=== PATIENT | male | born 1985 | race Two or more races ===

== ENCOUNTER 2018-12-13 09:26 | Outpatient (CLI) | payer OTHER ==
[~2018-12-13] VITALS: Ht 175.3 cm; Wt 104.3 kg
== END 2018-12-13 09:40 | disposition home or self-care (01) ==
LOC: OFIC 805 09:26
DX: Z20.2 Contact with and (suspected) exposure to infections with a predominantly sexual mode of transmission (principal)

== ENCOUNTER 2019-04-17 08:30 | Outpatient (CLI) | payer OTHER ==
[~2019-04-17] VITALS: Ht 152.4 cm; Wt 99.8 kg
[2019-04-17] MEDS ORDERED: PEPCID40 MG PO (10:25)
== END 2019-04-17 09:00 | disposition home or self-care (01) ==
LOC: OFIC 805 08:30
DX: J31.0 Chronic rhinitis (principal); J37.0 Chronic laryngitis; R05 Cough